=== PATIENT | female | born 1965 | race Two or more races ===

== ENCOUNTER 2019-03-28 21:48 | Observation (INO) | payer BC, OTHER ==
[2019-03-28] MEDS ORDERED: SODIUM CHLORIDE 0.9% 1,000 ML IV STA (22:11)
--- NOTE | 2019-03-28 22:12 | ED ---
Nausea/Vomiting/Diarrhea HPI - General Chief complaint: Nausea/Vomiting/Diarrhea Stated complaint: Cdiff Time Seen by Provider: 03/28/19 22:10 Source: patient Mode of arrival: wheelchair Limitations: no limitations - History of Present Illness Initial comments: Irma is a pleasant 54-year-old female who unfortunately had diverticulitis 2 months ago, after antibiotic therapy she developed C. diff diarrhea. She was treated in the hospital for a number of days and subsequently discharged home on oral Flagyl she completed that approximately 10 days ago. She reports she was on for few days but over the past 3 days has developed progressively worsening abdominal cramping, nausea, vomiting and profuse watery malodorous diarrhea consistent with previous episode of C. diff. Patient reports over the past 3 days she's been progressively weaker and concerned that she is dehydrated. MD complaint: nausea, vomiting, diarrhea Onset/Timin -: days(s) Description of Vomiting: watery, foul-smelling Description of Diarrhea: water Associated Abdominal Pain: Yes Location: diffuse Radiation: none Severity: moderate Quality: cramping Consistency: constant Improves with: none Worsens with: none Context: recent antibiotic use, other (Recent C. diff) Associated Symptoms: fever/chills, loss of appetite, nausea/vomiting, weakness - Related Data Home Medications Medication Instructions Recorded Confirmed Albuterol Inhaler [Ventolin Hfa 2 puff INHALATION RT-Q6H PRN 03/28/19 03/28/19 Inhaler] Ibuprofen [Motrin Ib] 400 mg PO Q6H PRN 03/28/19 03/28/19 Simvastatin [Zocor] 20 mg PO HS 03/28/19 03/28/19 Previous Rx's Medication Instructions Recorded Famotidine [Pepcid] 20 mg PO BID 30 Days #60 tab 03/30/19 Nicotine 14Mg/24Hr Patch [Habitrol] 1 patch TRANSDERM DAILY #20 patch 03/30/19 Allergies Allergy/AdvReac Type Severity Reaction Status Date / Time acetaminophen [From [place]] Allergy Rash/Hives Verified 03/28/19 22:37 ceftriaxone [From Rocephin] Allergy Rash/Hives Verified 03/28/19 22:37 codeine Allergy Rash/Hives Verified 03/28/19 22:37 hydrocodone [From [place]] Allergy Rash/Hives Verified 03/28/19 22:37 latex Allergy Rash/Hives Verified 03/28/19 22:37 levofloxacin [From Levaquin] Allergy Rash/Hives Verified 03/28/19 22:37 Sulfa (Sulfonamide Allergy Rash/Hives Verified 03/28/19 22:37 Antibiotics) Review of Systems ROS Statement: Those systems with pertinent positive or pertinent negative responses have been documented in the HPI. ROS Other: All systems not noted in ROS Statement are negative. Past Medical History Additional Past Medical History / Comment(s): kidney stones History of Any Multi-Drug Resistant Organisms: C-DIFF Date of last positivie culture/infection: 02/2019 Past Surgical History: Bowel Resection, Cholecystectomy Additional Past Surgical History / Comment(s): lumectomy left breast Past Psychological History: No Psychological Hx Reported Smoking Status: Current every day smoker Past Alcohol Use History: None Reported Past Drug Use History: None Reported General Exam - General Exam Comments Initial Comments: Physical Exam GENERAL: Patient lying in bed, appears uncomfortable, appears dehydrated HENT: Normocephalic, Atraumatic. EYES: PERRL, EOMI PULMONARY: Unlabored respirations. No audible rales rhonchi or wheezing was noted. CARDIOVASCULAR: There is a regular rate and rhythm without any murmurs gallops or rubs. ABDOMEN: Diffuse tenderness non-peritoneal SKIN: Skin is clear with no lesions or rashes and otherwise unremarkable. : Deferred NEUROLOGIC: Patient is alert and oriented x3. Moving all extremities spontaneously MUSCULOSKELETAL: Normal extremities with adequate strength and full range of motion. No lower extremity swelling or edema. No calf tenderness. PSYCHIATRIC: Normal psychiatric evaluation. Limitations: no limitations Course Vital Signs 03/28/19 22:06 Temperature 98 F Pulse Rate 93 Respiratory 20 Rate Blood Pressure 119/83 O2 Sat by Pulse 95 Oximetry Medical Decision Making - Medical Decision Making The patient was seen and evaluated history was obtained from the patient and review of medical record This 54-year-old female recently treated with oral Flagyl for C. diff returning today dehydrated with complaints of concern for recurrent C. diff, patient has watery malodorous diarrhea she appears dehydrated, at this time we'll plan on admitting her for IV fluid resuscitation, treatment for C. diff with oral vancomycin and Flagyl - Lab Data Result diagrams: 03/30/19 09:11 03/30/19 09:11 Disposition Clinical Impression: C. difficile diarrhea, Leukocytosis Disposition: ADMITTED IP TO THIS HOSP Condition: Fair Is patient prescribed a controlled substance at d/c from ED?: No
[2019-03-28] MEDS ORDERED: NALOXONE 0.4 MG/ML 1 ML VIAL IV PRN (22:32)
[2019-03-28] MEDS ORDERED: ONDANSETRON 4 MG/2 ML VIAL IVP PRN (22:32)
[2019-03-28] MEDS ORDERED: metroNIDAZOLE 500 MG TAB PO STA (22:34)
[2019-03-29] MEDS ORDERED: ACETAMINOPHEN TAB 325 MG TAB ONE (03:15)
[2019-03-29] MEDS ORDERED: ONDANSETRON 4 MG/2 ML VIAL ONE (03:15)
--- NOTE | 2019-03-29 07:17 | XR ---
EXAMINATION TYPE: XR KUB DATE OF EXAM: 03/28/2019 COMPARISON: NONE HISTORY: Nausea and vomiting TECHNIQUE: 2 views FINDINGS: There is slight levoscoliosis. There is no sign of intestinal obstruction or pneumoperitone um. There are calcifications in the upper and lower poles of both kidneys. Lung bases show a small in filtrate at the right costophrenic angle. There is no evidence of a mass. Fecal pattern is normal. Th ere is clips from cholecystectomy. IMPRESSION: Multiple renal calculi. There is small infiltrate lateral right lung base.
[2019-03-29 08:06] VITALS: BMI 27.3
[2019-03-29] MEDS: SODIUM CHLORIDE 0.9% 1,000 ML IV SCH ×3 (08:21→17:14)
[2019-03-29] MEDS: VANCOMYCIN ORAL SOLUTION 250 MG/5 ML BOTTLE PO SCH ×4 (08:21→17:48)
[2019-03-29] MEDS: CHERRY FLAVOR 60 ML BOTTLE PO SCH ×3 (08:22→17:50)
[2019-03-29] MEDS: NICOTINE 14MG/24HR PATCH TRANSDERM SCH (11:01)
[2019-03-29] MEDS: ACETAMINOPHEN TAB 325 MG TAB PO PRN (11:01)
[2019-03-29 11:23] LABS: Basophils # (A) 0.2 k/uL (0-0.2); Basophils % (A) 1 %; Eosinophils # (A) 0.2 k/uL (0-0.7); Eosinophils % (A) 2 %; HCT 49.8 % (34.0-46.0); HGB 15.8 gm/dL (11.4-16.0); Lymphocytes # (A) 2.7 k/uL (1.0-4.8); Lymphocytes % (A) 18 %; MCH 28.9 pg (25.0-35.0); MCHC 31.8 g/dL (31.0-37.0); MCV 91.1 fL (80.0-100.0); Mean Platelet Volume 7.7; Monocytes # (A) 0.9 k/uL (0-1.0); Monocytes % (A) 6 %; Neutrophils # (A) 10.9 k/uL (1.3-7.7); Neutrophils % (A) 72 %; Platelet Count 358 k/uL (150-450); RBC 5.47 m/uL (3.80-5.40); RDW 14.1 % (11.5-15.5); WBC 15.2 k/uL (3.8-10.6)
[2019-03-29] MEDS: ALBUTEROL NEBULIZED 2.5 MG/3 ML INHALATION PRN ×2 (11:32→19:55)
[2019-03-29 12:12] LABS: Appearance,Urine Cloudy (Clear); Bilirubin,Urine 1+ (Negative); Blood,Urine Negative (Negative); Calcium Oxalate Crystals,Urine Many /hpf; Color,Urine Yellow; Glucose,Urine (UA) Negative (Negative); Ketones,Urine 2+ (Negative); Leukocyte Esterase,Urine Small (Negative); Mucus,Urine Many /hpf; Nitrite,Urine Negative (Negative); PH, Urine 6.5 (5.0-8.0); Protein,Urine Trace (Negative); RBC,Urine 2 /hpf (0-5); Squamous Epithelial Cell,Urine 4 /hpf (0-4); WBC,Urine 8 /hpf (0-5)
[2019-03-29 13:00] LABS: ALT 23 U/L (9-52); AST 24 U/L (14-36); African American GFR (CKD) >90 (>60 ml/min/1.73 sqM); Albumin 4.2 g/dL (3.5-5.0); Alkaline Phosphatase 109 U/L (38-126); Anion Gap 14 mmol/L; Blood Urea Nitrogen 16 mg/dL (7-17); Calcium 9.9 mg/dL (8.4-10.2); Carbon Dioxide 20 mmol/L (22-30); Chloride 106 mmol/L (98-107); Glucose 108 mg/dL (74-99); Non-African American GFR(CKD) >90 (>60 ml/min/1.73 sqM); Potassium 3.6 mmol/L (3.5-5.1); Sodium 140 mmol/L (137-145); Total Bilirubin 0.2 mg/dL (0.2-1.3); Total Protein 7.2 g/dL (6.3-8.2)
[2019-03-29] MEDS: IOPAMIDOL CONTRAST (ORAL USE) VIAL PO PRN ×2 (14:32→15:30)
[2019-03-29] MEDS ORDERED: KETOROLAC 30 MG/ML 1 ML VIAL IVP PRN (15:18)
--- NOTE | 2019-03-29 15:22 | P.HPIM ---
History of Present Illness Patient is a pleasant 54-year-old female came in with complaints of pain in the left lower quadrant radiating to the back. Pain is severe crampy spasmodic pain. Patient is found to have multiple renal calculi probably contributed to her pain. Patient is found stools she believes she may have C. diff colitis because of which patient was admitted Flagyl was discontinued, patient was started on oral vancomycin which is being continued, infectious disease evaluated the patient. Patient was having diarrhea apparently yesterday, formed stool today. Patient pain is severe. She denied in denies any diarrhea dysuria urine is positive for cashew oxalate crystals 2+ ketones and some protein patient was having nausea vomiting as well. Review of Systems REVIEW OF SYSTEMS: CONSTITUTIONAL: No fever, no malaise, no fatigue. HEENT: No recent visual problems or hearing problems. Denied any sore throat. CARDIOVASCULAR: No chest pain, orthopnea, PND, no palpitations, no syncope. PULMONARY: No shortness of breath, no cough, no hemoptysis. GASTROINTESTINAL: As mentioned in HPI NEUROLOGICAL: No headaches, no weakness, no numbness. HEMATOLOGICAL: Denies any bleeding or petechiae. GENITOURINARY: Denies any burning micturition, frequency, or urgency. MUSCULOSKELETAL/RHEUMATOLOGICAL: Denies any joint pain, swelling, or any muscle pain. ENDOCRINE: Denies any polyuria or polydipsia. The rest of the 14-point review of systems is negative. Past Medical History Past Medical History: Hyperlipidemia Additional Past Medical History / Comment(s): kidney stones History of Any Multi-Drug Resistant Organisms: C-DIFF Date of last positivie culture/infection: 02/2019 MDRO Source:: stool Past Surgical History: Bowel Resection, Cholecystectomy Additional Past Surgical History / Comment(s): lumpectomy left breast, Right eye lid skin Ca removal Past Anesthesia/Blood Transfusion Reactions: No Reported Reaction Past Psychological History: No Psychological Hx Reported Smoking Status: Current every day smoker Past Alcohol Use History: None Reported Past Drug Use History: None Reported Additional Drug Use History / Comment(s): Was trying to quit smoking with the patch then had high stress so increased smoking again. Medications and Allergies Home Medications Medication Instructions Recorded Confirmed Type Albuterol Inhaler [Ventolin Hfa 2 puff INHALATION RT-Q6H PRN 03/28/19 03/28/19 History Inhaler] Ibuprofen [Motrin Ib] 400 mg PO Q6H PRN 03/28/19 03/28/19 History Simvastatin [Zocor] 20 mg PO HS 03/28/19 03/28/19 History Allergies Allergy/AdvReac Type Severity Reaction Status Date / Time acetaminophen [From [place]] Allergy Rash/Hives Verified 03/28/19 22:37 ceftriaxone [From Rocephin] Allergy Rash/Hives Verified 03/28/19 22:37 codeine Allergy Rash/Hives Verified 03/28/19 22:37 hydrocodone [From [place]] Allergy Rash/Hives Verified 03/28/19 22:37 latex Allergy Rash/Hives Verified 03/28/19 22:37 levofloxacin [From Levaquin] Allergy Rash/Hives Verified 03/28/19 22:37 Sulfa (Sulfonamide Allergy Rash/Hives Verified 03/28/19 22:37 Antibiotics) Physical Exam Vitals: Vital Signs Temp Pulse Pulse Resp BP BP Pulse Ox 03/29/19 13:01 97.8 F 74 16 107/79 96 03/29/19 11:45 92 03/29/19 11:32 88 03/29/19 09:41 18 03/29/19 09:12 97.2 F L 67 18 108/70 97 03/29/19 05:45 97.5 F L 67 18 109/56 96 03/28/19 22:06 98 F 93 20 119/83 95 Intake and Output 03/29/19 03/29/19 03/29/19 06:59 14:59 22:59 Other: # Voids 1 # Bowel Movements 1 PHYSICAL EXAMINATION: GENERAL: The patient is alert and oriented x3, not in any acute distress. Well developed, well nourished. HEENT: Pupils are round and equally reacting to light. EOMI. No scleral icterus. No conjunctival pallor. Normocephalic, atraumatic. No pharyngeal erythema. No thyromegaly. CARDIOVASCULAR: S1 and S2 present. No murmurs, rubs, or gallops. PULMONARY: Chest is clear to auscultation, no wheezing or crackles. ABDOMEN: Soft, nontender, nondistended, normoactive bowel sounds. No palpable organomegaly. MUSCULOSKELETAL: No joint swelling or deformity. EXTREMITIES: No cyanosis, clubbing, or pedal edema. NEUROLOGICAL: Gross neurological examination did not reveal any focal deficits. SKIN: No rashes. Results CBC & Chem 7: 03/28/19 22:55 03/28/19 22:55 Labs: Abnormal Lab Results - Last 24 Hours (Table) 03/28/19 03/28/19 03/28/19 Range/Units 22:55 22:55 22:59 WBC 15.2 H (3.8-10.6) k/uL RBC 5.47 H (3.80-5.40) m/uL Hct 49.8 H (34.0-46.0) % Neutrophils # 10.9 H (1.3-7.7) k/uL Carbon Dioxide 20 L (22-30) mmol/L Glucose 108 H (74-99) mg/dL Urine Appearance Cloudy H (Clear) Urine Protein Trace H (Negative) Urine Ketones 2+ H (Negative) Urine Bilirubin 1+ H (Negative) Ur Leukocyte Esterase Small H (Negative) Urine WBC 8 H (0-5) /hpf Calcium Oxalate Crystal Many H (None) /hpf Urine Mucus Many H (None) /hpf Thrombosis Risk Factor Assmnt - Choose All That Apply Each Factor Represents 1 point: Age 41-60 years, Obesity (BMI >25) Other Risk Factors: No Thrombosis Risk Factor Assessment Total Risk Factor Score: 2 Thrombosis Risk Factor Assessment Level: Low Risk Assessment and Plan Plan: -Abdominal pain: May be related to nephrolithiasis without any CAT scan of the abdomen. Although I cannot completely rule out C. diff as patient resumed antibiotics at this time patient had a formed stool. Unfortunately I do not have any C. diff testing avail able at this time and we cannot obtain C. diff as she has found stool. Infectious disease evaluated the patient. -leukocytosis reactive most probably secondary to nephrolithiasis. Depending on the CAT scan findings I may have consult urology will use Toradol for pain cont inue with IV fluids -Nicotine use: Counseling was provided -Hyperlipidemia -History of C. diff in the past -Due to prophylaxis early ambulation
--- NOTE | 2019-03-29 16:47 | CT ---
EXAMINATION TYPE: CT abdomen pelvis w con DATE OF EXAM: 03/29/2019 HISTORY: Left side flank pain and hematuria. CT DLP: 778.5mGycm Automated Exposure Control for Dose Reduction was Utilized. CONTRAST: CT scan of the abdomen and pelvis is performed with IV Contrast, patient injected with 100ml mL of Is ovue 300. COMPARISON: None. FINDINGS: LUNG BASES: Patchy right basilar linear scarring and/or atelectasis. LIVER/GB: Cholecystectomy clips. PANCREAS: No significant abnormality is seen. SPLEEN: Small splenule inferior to the spleen. ADRENALS: Bilateral adrenal masses with 2.7 x 1.9 cm left-sided mass having Hounsfield units averagin g 47 on postcontrast study and 2.2 x 1.7 cm inferior right adrenal mass axial image 23 Hounsfield uni ts averaging 46 on postcontrast. KIDNEYS: Single 4 mm elongated calculus centrally left kidney upper pole level coronal image 54. Ther e are 1-2 additional smaller punctate calculi scattered throughout the left kidney. Larger 9 mm calcu alex midpole level right kidney actually measures 35 with suspected 4 smaller scattered right-sided re nal calculi. Symmetric cortical medullary uptake and excretion from both kidneys without hydronephros is seen bilaterally. No intraluminal calculus in bladder. BOWEL: Surgical sutures at base of cecum. No suspicious small or large bowel dilatation. Some diverti cula in the sigmoid colon without CT evidence for acute diverticulitis. UTERUS/ADNEXA: Anteverted uterus. There is 4.0 cm rounded low dense lesion left adnexa axial image 68 . This is abnormal finding in postmenopausal female. LYMPH NODES: No greater than 1cm abdominal or pelvic lymph nodes are appreciated. OSSEOUS STRUCTURES: No significant abnormality is seen. OTHER: No significant additional abnormality is seen. IMPRESSION: 1. Bilateral nonobstructing renal calculi. No hydronephrosis or obstructing ureteral calculi. No geovanni yed excretion. 2. Bilateral nonspecific adrenal masses, malignant etiology cannot be excluded. Follow-up adrenal pro tocol CT or MRI advised to better evaluate and characterize. 3. There is 4.0 cm left ovarian cyst or cystic lesion, abnormal finding in postmenopausal female. Adv ise gynecology oncology referral and pelvic ultrasound to better evaluate and characterize.
[2019-03-29] MEDS: FAMOTIDINE 20 MG TAB PO SCH (20:29)
[2019-03-29 21:33] VITALS: RESP 18
[2019-03-29] MEDS: AZTREONAM 1 GM in SODIUM CHLORIDE 0.9% 50 ML IVPB SCH (21:54)
--- NOTE | 2019-03-29 22:18 | P.CONS ---
History of Present Illness - Reason for Consult Consult date: 03/29/19 Leukocytosis and question of recurrent C. diff colitis Requesting physician: Cindy Kline - Chief Complaint Nausea vomiting and diarrhea x few days - History of Present Illness Patient is a 54 year female with a past medical history significant for diverticulitis her clinical course complicated by development of C. diff colitis that apparently has been treated with oral Flagyl patient did have improvement in her diarrhea and GI symptoms however for the last few days the patient having acute nausea vomiting and diarrhea the patient did have foul-smelling multiple loose stools has been complaining of pain in the left lower abdominal area more of a colicky with intensity of 6-7 of 10 and no radiation the patient, during of some chills but denies high-grade fever with these symptoms the patient was evaluated by the physician patient did have KUB x-rays did show some nonspecific bowel gas pattern she did have elevated white count of 15,000 stool for C. diff or requested she was started on oral vancomycin has been admitted to the hospital infectious disease was consulted for further recommendations regarding antibiotics, this morning the patient did have a formed bowel movement hence it was not sent for C. diff testing Review of Systems Positive point has been mentioned in the HPI rest of the systems are negative Past Medical History Past Medical History: Hyperlipidemia Additional Past Medical History / Comment(s): kidney stones History of Any Multi-Drug Resistant Organisms: C-DIFF Year Discovered:: 02/2019 MDRO Source:: stool Past Surgical History: Bowel Resection, Cholecystectomy Additional Past Surgical History / Comment(s): lumpectomy left breast, Right eye lid skin Ca removal Past Anesthesia/Blood Transfusion Reactions: No Reported Reaction Past Psychological History: No Psychological Hx Reported Smoking Status: Current every day smoker Past Alcohol Use History: None Reported Past Drug Use History: None Reported Additional Drug Use History / Comment(s): Was trying to quit smoking with the patch then had high stress so increased smoking again. Medications and Allergies Home Medications Medication Instructions Recorded Confirmed Type Albuterol Inhaler [Ventolin Hfa 2 puff INHALATION RT-Q6H PRN 03/28/19 03/28/19 History Inhaler] Ibuprofen [Motrin Ib] 400 mg PO Q6H PRN 03/28/19 03/28/19 History Simvastatin [Zocor] 20 mg PO HS 03/28/19 03/28/19 History Allergies Allergy/AdvReac Type Severity Reaction Status Date / Time acetaminophen [From [place]] Allergy Rash/Hives Verified 03/28/19 22:37 ceftriaxone [From Rocephin] Allergy Rash/Hives Verified 03/28/19 22:37 codeine Allergy Rash/Hives Verified 03/28/19 22:37 hydrocodone [From [place]] Allergy Rash/Hives Verified 03/28/19 22:37 latex Allergy Rash/Hives Verified 03/28/19 22:37 levofloxacin [From Levaquin] Allergy Rash/Hives Verified 03/28/19 22:37 Sulfa (Sulfonamide Allergy Rash/Hives Verified 03/28/19 22:37 Antibiotics) Physical Exam Vitals: Vital Signs Temp Pulse Pulse Resp BP BP Pulse Ox 03/29/19 09:41 18 03/29/19 09:12 97.2 F L 67 18 108/70 97 03/29/19 05:45 97.5 F L 67 18 109/56 96 03/28/19 22:06 98 F 93 20 119/83 95 Intake and Output 03/28/19 03/29/19 03/29/19 22:59 06:59 14:59 Other: # Voids 1 # Bowel Movements 1 Weight 75.75 kg GENERAL DESCRIPTION: Middle-aged female lying in bed, no distress. No tachypnea or accessory muscle of respiration use. HEENT: Shows Pallor , no scleral icterus. Oral mucous membrane is dry. No pharyngeal erythema or thrush NECK: Trachea central, no thyromegaly. LUNGS: Unlabored breathing. Clear to auscultation anteriorly. No wheeze or crackle. HEART: S1, S2, regular rate and rhythm. No loud murmur ABDOMEN: Soft, mild left-sided tenderness , no guarding or rigidity, no organomegaly EXTREMITIES: No edema of feet. SKIN: No rash, no masses palpable. NEUROLOGICAL: The patient is awake, alert, oriented x3, mood and affect normal. Results CBC & Chem 7: 03/28/19 22:55 03/28/19 22:55 Labs: Abnormal Lab Results - Last 24 Hours (Table) 03/28/19 Range/Units 22:55 WBC 15.2 H (3.8-10.6) k/uL RBC 5.47 H (3.80-5.40) m/uL Hct 49.8 H (34.0-46.0) % Neutrophils # 10.9 H (1.3-7.7) k/uL Assessment and Plan Assessment: 1-patient presented to hospital with acute nausea vomiting diarrhea and also has been complaining of abdominal pain in this patient did have mild left-sided tenderness with elevated white count of 15,000 the patient had did have a formed bowel movement that we will go N diagnosis of C. diff colitis in June of the patient history of diverticulitis will need to be ruled out in view of her pain tenderness and elevated white count 2-Patient with multiple antibiotic ALLERGIES that would limit the number of antibiotic safe to use (1) Leukocytosis Current Visit: Yes Status: Acute Code(s): D72.829 - ELEVATED WHITE BLOOD CELL COUNT, UNSPECIFIED SNOMED Code(s): 012087873 Plan: 1-we will check a CT of abdominal pelvis with contrast to rule out diverticulitis/colitis 2-empirically add Azactam 1 g every 12 per 3-gentle IV fluid We will follow on clinical condition and cultures to further adjust medication if needed Thank you for this consultation will follow this patient with you Time with Patient: Greater than 30
[2019-03-30] MEDS: SODIUM CHLORIDE 0.9% 1,000 ML IV SCH (05:41)
[2019-03-30] MEDS: ACETAMINOPHEN TAB 325 MG TAB PO PRN (06:28)
[2019-03-30 08:23] VITALS: BP 139/81; TEMP 97.7
[2019-03-30] MEDS: ALBUTEROL NEBULIZED 2.5 MG/3 ML INHALATION PRN (08:34)
[2019-03-30 08:45] VITALS: PULSE 68
[2019-03-30 09:51] LABS: Basophils # (A) 0.1 k/uL (0-0.2); Basophils % (A) 1 %; Eosinophils # (A) 0.2 k/uL (0-0.7); Eosinophils % (A) 2 %; HCT 44.3 % (34.0-46.0); HGB 14.8 gm/dL (11.4-16.0); Lymphocytes # (A) 2.5 k/uL (1.0-4.8); Lymphocytes % (A) 25 %; MCH 30.5 pg (25.0-35.0); MCHC 33.4 g/dL (31.0-37.0); MCV 91.3 fL (80.0-100.0); Mean Platelet Volume 6.7; Monocytes # (A) 0.5 k/uL (0-1.0); Monocytes % (A) 5 %; Neutrophils # (A) 6.3 k/uL (1.3-7.7); Neutrophils % (A) 65 %; Platelet Count 312 k/uL (150-450); RBC 4.85 m/uL (3.80-5.40); RDW 13.9 % (11.5-15.5); WBC 9.8 k/uL (3.8-10.6)
[2019-03-30 10:02] LABS: African American GFR (CKD) >90 (>60 ml/min/1.73 sqM); Anion Gap 12 mmol/L; Blood Urea Nitrogen 13 mg/dL (7-17); Calcium 9.5 mg/dL (8.4-10.2); Carbon Dioxide 24 mmol/L (22-30); Chloride 107 mmol/L (98-107); Glucose 105 mg/dL (74-99); Non-African American GFR(CKD) >90 (>60 ml/min/1.73 sqM); Potassium 3.4 mmol/L (3.5-5.1); Sodium 143 mmol/L (137-145)
[2019-03-30] MEDS ORDERED: POTASSIUM CHLORIDE ER 20 MEQ TAB.ER PO STA (10:11)
[2019-03-30] MEDS: FAMOTIDINE 20 MG TAB PO SCH (11:45)
[2019-03-30] MEDS: NICOTINE 14MG/24HR PATCH TRANSDERM SCH (11:45)
[2019-03-30] MEDS: AZTREONAM 1 GM in SODIUM CHLORIDE 0.9% 50 ML IVPB SCH (11:45)
--- NOTE | 2019-03-30 12:46 | PN ---
PROGRESS NOTE DATE OF SERVICE: 03/30/2019 REASON FOR FOLLOWUP: Leukocytosis and question of diverticulitis/C difficile. INTERVAL HISTORY: The patient is seen on rounds this morning. The patient has been afebrile. The patient apparently did pull out her IV this morning and was refusing further IV antibiotic. The patient overall is feeling better. Denies having any chest pain or any cough. No nausea, no vomiting. No abdominal pain. No further diarrhea. PHYSICAL EXAMINATION: On examination, blood pressure 139/84 with a pulse of 57, temperature 97.7. She is 96% on room air. General description is a middle-aged female up in the room in no distress. RESPIRATORY SYSTEM: Unlabored breathing, clear to auscultation anteriorly. HEART: S1, S2. Regular rate and rhythm. ABDOMEN: Soft, no tenderness. LABS: White count normalized to 9.8 with a BUN of 13, creatinine 0.59. CT of abdomen and pelvis, no evidence of diverticulitis or colitis. It did show some abnormality of the and the renal stone. DIAGNOSTIC IMPRESSION AND PLAN: Patient admitted to the hospital with acute nausea, vomiting and diarrhea with concern for possible Clostridium difficile colitis. This patient did have a history of Clostridium difficile; however, she did have formed stool and stool for Clostridium difficile was not checked. Also a CT of abdomen and pelvis was done to rule out diverticulitis, which was negative. The patient's white count has normalized with no clinical focus of infection. Recommend no antibiotic on discharge. She will follow up with [employer] and primary care physician for abnormality seen on the CT. She was made aware of the findings. MMODL / IJN: [id number] / ANA
--- NOTE | 2019-03-31 09:56 | P.DS ---
Providers Date of admission: 03/28/19 22:34 Expected date of discharge: 03/30/19 Attending physician: Niall Driscoll Consults: 03/28/19 22:32 Consult Physician Urgent Consulting Provider: Kimberly June Consult Reason/Comments: recurrent c diff Do you want consulting provider notified?: Yes Primary care physician: Physician Nonstaff Hospital Course: Final diagnosis Abdominal pain may be related to nephrolithiasis Leukocytosis reactive most probably secondary to nephrolithiasis Nicotine use Lipidemia History of C. diff in the past DVT prophylaxis Discharge disposition Patient is being discharged in a stable condition with guarded prognosis to home and will follow-up with her primary care provider upon discharge. Patient will Also be following up with urology for non-obstructing renal calculi. Patient will be following up with [facility] for a left ovarian cyst or cystic lesion in the outpatient setting. Total time taken is 35 minutes. History of present illness This is a 54-year-old female who came in with complaints of left lower quadrant pain that was radiating to the back and was being closely monitored. Patient was found to have multiple renal calculi may be contributing to her pain. Patient has a history of C. diff and believes she may have C. diff colitis and infectious disease was consulted. Patient was started on Vanco in the ED. Today patient's condition is stable with much improvement and would like to go home today. Patient states her last bowel movement was formed and was yesterday and denies having abdominal discomfort or pain today. Patient denies any nausea or vomiting and is tolerating diet. Currently patient denies any chest pain, shortness of breath, or palpitations at this time. Patient is afebrile. Patient will be discharged today and follow-up with her primary care provider upon discharge as well as urology and [facility] [facility] [facility] for further workup of the renal calculi that were nonobstructive as well as possible cyst on the ovaries. Patient verbalizes understanding of this treatment plan and agrees with the plan. Guarded prognosis. On exam vital signs are stable. Temp is 97.7F, pulse is 67, respirations are 18, blood pressure is 139/81, oxygen saturation is 96% on room air. Cardio S1 and S2 are present. Respiratory system shows clear to auscultation. Abdomen is soft and nontender. Nervous system shows no focal deficits and gait is steady. Please refer to medication reconciliation sheet for a list of medications. Patient Condition at Discharge: Fair Plan - Discharge Summary Discharge Rx Participant: Yes New Discharge Prescriptions: New Nicotine 14Mg/24Hr Patch [Habitrol] 1 patch TRANSDERM DAILY #20 patch Famotidine [Pepcid] 20 mg PO BID 30 Days #60 tab Continue Simvastatin [Zocor] 20 mg PO HS Albuterol Inhaler [Ventolin Hfa Inhaler] 2 puff INHALATION RT-Q6H PRN PRN Reason: Shortness Of Breath Ibuprofen [Motrin Ib] 400 mg PO Q6H PRN PRN Reason: Pain Discharge Medication List Albuterol Inhaler [Ventolin Hfa Inhaler] 2 puff INHALATION RT-Q6H PRN 03/28/19 [History] Ibuprofen [Motrin Ib] 400 mg PO Q6H PRN 03/28/19 [History] Simvastatin [Zocor] 20 mg PO HS 03/28/19 [History] Famotidine [Pepcid] 20 mg PO BID 30 Days #60 tab 03/30/19 [Rx] Nicotine 14Mg/24Hr Patch [Habitrol] 1 patch TRANSDERM DAILY #20 patch 03/30/19 [Rx] Follow up Appointment(s)/Referral(s): Fadumo Agudelo MD [REFERRING] - 04/04/19 1:45 pm Coleman Luong MD [REFERRING] - 1-2 Days Malik Schwarz MD [STAFF PHYSICIAN] - 3 Days Ambulatory/Diagnostic Orders: Basic Metabolic Panel [LAB.AMB] Location: None Selected Complete Blood Count w/diff [LAB.AMB] Time Frame: 3 Days, Location: None Selected Activity/Diet/Wound Care/Special Instructions: Activity limited until follow up Follow-up with primary care provider upon discharge-I know you prefer to make this appt yourself, but call jessenia so you can be seen within a week Follow-up with Urology this week-the office will call you to make your appt Continue current diet Avoid tobacco use Repeat labs in 2-3 days-script given follow up with your behavior clinician dr this week regarding your ct results (ovarian cyst) Discharge Disposition: HOME SELF-CARE
== END 2019-03-30 11:20 | disposition home or self-care (01) ==
LOC: EC 21:48 → INTOOBSV 22:32 → 6PED 22:32 → UNDOADMIN 22:34 → UNDODISIN 03-30 11:20
PROVIDERS: ADMIT Hospitalist; ATTEND Hospitalist
DX: R10.32 Left lower quadrant pain (principal); D72.829 Elevated white blood cell count, unspecified; E78.5 Hyperlipidemia, unspecified; F17.200 Nicotine dependence, unspecified, uncomplicated; Z16.24 Resistance to multiple antibiotics; Z86.19 Personal history of other infectious and parasitic diseases; Z88.1 Allergy status to other antibiotic agents; Z87.442 Personal history of urinary calculi; Z79.899 Other long term (current) drug therapy; Z88.5 Allergy status to narcotic agent; Z88.2 Allergy status to sulfonamides; Z88.6 Allergy status to analgesic agent; Z91.040 Latex allergy status; Z90.49 Acquired absence of other specified parts of digestive tract; Z87.19 Personal history of other diseases of the digestive system; Z71.6 Tobacco abuse counseling; N20.0 Calculus of kidney
CPT/HCPCS: 96375; 96374; 99285; 94640 ×3; 80053; 80048; 83690; 85025 ×2; 81001; 74018; 74177; G0378 ×3; S4990; J2405; J1885; Q9967; 96360; 96361